=== PATIENT | female | born 1970 | race Caucasian/White ===

== ENCOUNTER 2016-05-24 17:57 | Emergency (ER) | payer OTHER ==
[~2016-05-24] VITALS: Ht 177.8 cm; Wt 99.0 kg
[~2016-05-24 17:57] MED LIST: ABILIFY2 MG PO; AMBIEN10 MG PO; AMLODIPINE BESYL5 MG PO; ASPIR 8181 M1 PO; ASPIR-LOW81 MG PO; BENTYL10 MG PO; BENZTROPINE MESY2 MG PO; CIPRO500 MG PO; CLONAZEPAM1 MG PO; CYMBALTA60 MG PO; DITROPAN5 MG PO; FLEXERIL10 MG PO; GEMFIBROZIL600 MG PO; HALDOL10 MG PO; LATUDA120 MG PO; LATUDA40 MG PO; LEVO-T88 MCG PO; LEVOTHYROXINE25 MCG PO; LEVOTHYROXINE50 MCG PO; LINZESS290 MCG PO; LOPID600 M1 PO; LORAZEPAM1 MG PO; LORTAB 5-325 M1 EACH PO; LYRICA100 MG PO; METOPROLOL SUCC25 MG PO; MIRTAZAPINE15 MG PO; MORPHINE SULFAT15 M1 PO; MORPHINE SULFAT30 M2 PO; MOTRIN600 MG PO; MOVE IT ALONG100 MG PO; MS CONTIN,ORAMO30 MG PO; PERCOCET 5/31 TABLET PO; PERCOCET 7.5-31 EACH PO; POLYETHYLENE GL17 GM PO; PRAVASTATIN SOD40 MG PO; PREVACID30 MG PO; PROTONIX40 MG PO; ROBAXIN750 MG PO; TEMAZEPAM15 MG PO; TIZANIDINE HCL4 MG PO; TRAZODONE HCL100 MG PO; TRAZODONE HCL150 MG PO; VALIUM5 MG PO; VICODIN,LORT1 TABLET PO; VITAMIN D5000 UNI1 PO; ZOFRAN ODT4 MG PO
[2016-05-24 20:20] LABS: HEMATOCRIT 39.8 % (36.0-46.0); MCH 30.5 PG (29.0-34.0); MCHC 34.2 G/DL (30.0-36.0); MCV 89.2 FL (83-99); MEAN PLAT.VOLUME 9.1 uM^3 (9.5-12.4); PLATELET COUNT 239 K/uL (156-360); RBC DIS.WIDTH-CV 13.1 % (11.8-14.6); RBC DIS.WIDTH-SD 41.8 % (39-53); RED BLOOD COUNT 4.46 M/uL (3.80-5.20); WHITE BLOOD COUNT 6.3 K/uL (4.1-10.2)
[2016-05-24 20:24] LABS: CHLORIDE 107 mEq/L (99-109); POTASSIUM 4.4 mEq/L (3.7-5.4); SODIUM 142 mEq/L (136-147)
[2016-05-24 20:26] LABS: GLUCOSE 76 mg/dL (70-99)
[2016-05-24 20:27] LABS: ANION GAP 10 MEQ/L (2-14)
[2016-05-24 20:28] LABS: TOTAL BILIRUBIN 0.3 mg/dL (0.0-1.0)
[2016-05-24 20:29] LABS: ALKALINE PHOSPHATASE 89 IU/L (3-129)
[2016-05-24 20:30] LABS: GFR ESTIMATE (CALCULATED) > 59 mL/min/
[2016-05-24 20:31] LABS: UREA NITROGEN (BUN) 12 mg/dL (9-23)
[2016-05-24 20:33] LABS: LIPASE 41 U/L (1.0-51.0)
[2016-05-24 20:38] LABS: QUANTITATIVE HCG < 4.0 MIU/ML
[2016-05-24] MEDS ORDERED: NAPROXEN500 MG PO (21:36)
[2016-05-24] MEDS ORDERED: PERCOCET 5/31 TABLET PO (21:36)
[2016-05-24 21:50] VITALS: BP 121/64
== END 2016-05-24 21:50 | disposition home or self-care (01) ==
LOC: EME 17:57
PROVIDERS: Physician Assistant
DX: S70.02XA Contusion of left hip, initial encounter (principal); S80.02XA Contusion of left knee, initial encounter; M54.5 Low back pain; R07.81 Pleurodynia; V09.20XA Pedestrian injured in traffic accident involving unspecified motor vehicles, initial encounter; Z86.718 Personal history of other venous thrombosis and embolism; F17.200 Nicotine dependence, unspecified, uncomplicated
CPT/HCPCS: 71100; 73502; 73564; 80053; 83690; 84702; 85027; 99281; 99284

== ENCOUNTER 2016-09-20 20:12 | Observation (INO) | payer OTHER ==
[~2016-09-20] VITALS: Ht 177.8 cm; Wt 96.8 kg
[~2016-09-20 20:12] MED LIST changes: +NAPROXEN500 MG PO
[2016-09-20 21:39] LABS: HEMATOCRIT 38.2 % (36.0-46.0); MCV 91.2 FL (83-99); MEAN PLAT.VOLUME 9.3 uM^3 (9.5-12.4); PLATELET COUNT 228 K/uL (156-360); RBC DIS.WIDTH-CV 12.4 % (11.8-14.6); RBC DIS.WIDTH-SD 41.4 % (39-53); RED BLOOD COUNT 4.19 M/uL (3.80-5.20); WHITE BLOOD COUNT 6.6 K/uL (4.1-10.2)
[2016-09-20 22:02] LABS: CHLORIDE 107 mEq/L (99-109); SODIUM 139 mEq/L (136-147)
[2016-09-20 22:04] LABS: GLUCOSE 85 mg/dL (70-99)
[2016-09-20 22:06] LABS: ANION GAP 7 MEQ/L (2-14)
[2016-09-20 22:08] LABS: GFR ESTIMATE (CALCULATED) > 59 mL/min/; TROP-I INTERPRETATION NEGATIVE; TROPONIN-I < 0.01 ng/mL (0.0-0.30)
[2016-09-20 22:09] LABS: UREA NITROGEN (BUN) 11 mg/dL (9-23)
[2016-09-20 23:44] LABS: ADD MIUA? YES; BILIRUBIN NEGATIVE; BLOOD NEGATIVE; COLOR YELLOW ((YELLOW)); GLUCOSE (STRIP) NEGATIVE; KETONES 5; LEUKOCYTES NEGATIVE; NITRITE NEGATIVE; PROTEIN (STRIP) NEGATIVE; SPECIFIC GRAVITY 1.021 (1.000-1.030); UROBILINOGEN 0.2 MG/DL (0.2-1.0)
[2016-09-20 23:56] LABS: AMPHETAMINE NEGATIVE (500 ng/mL); BACTERIA RARE /HPF; BARBITURATES NEGATIVE (200 ng/mL); BENZODIAZEPINES PRESUMPTIVE POSITIVE (150 ng/mL); CALCIUM OXALATE CRYSTALS 4+ /HPF; COCAINE NEGATIVE (150 ng/mL); EPITHELIAL CELLS RARE /HPF; HYALINE CASTS 0-5 /LPF; INTERNAL CONTROLS VALID? YES; METHADONE NEGATIVE (200 ng/mL); METHAMPHETAMINE NEGATIVE (500 ng/mL); MUCUS TRACE /LPF; OPIATES (MORPHINE) NEGATIVE (100 ng/mL); OXYCODONE NEGATIVE (100 ng/mL); PHENCYCLIDINE NEGATIVE (25 ng/mL); PROPOXYPHENE NEGATIVE (300 ng/mL); RED BLOOD CELLS 0-5 /HPF (0-5); THC CANNABINOIDS PRESUMPTIVE POSITIVE (50 ng/mL); TRICYCLIC ANTIDEPRESSANTS NEGATIVE (300 ng/mL); WHITE BLOOD CELLS 0-5 /HPF (0-5)
[2016-09-20 23:57] LABS: ADD MEDTOX COMMENT Y
[2016-09-21 00:28] LABS: BENZODIAZEPINES QUANT VALUE 0 NG/ML; BENZODIAZEPINES, URINE SCREEN Negative (200 ng/mL)
[2016-09-21] MEDS ORDERED: LO-DOSE ASPIRIN81 M2 PO (00:49)
[2016-09-21 02:30] LABS: D-DIMER ELISA 0.31 mg/L FEU (< 0.57); PROTHROMBIN TIME 10.5 (9.2-11.2); PTT 27.1 (25-32)
[2016-09-21 05:42] LABS: TROP-I INTERPRETATION NEGATIVE; TROPONIN-I < 0.01 ng/mL (0.0-0.30)
[2016-09-21 13:06] LABS: TROP-I INTERPRETATION NEGATIVE; TROPONIN-I < 0.01 ng/mL (0.0-0.30)
[2016-09-21 13:26] VITALS: BP 125/68
[2016-09-21] MEDS ORDERED: TRAMADOL HCL50 MG PO (15:57)
[2016-09-21 16:41] VITALS: BP 140/81
== END 2016-09-21 18:00 | disposition home or self-care (01) ==
LOC: EME 20:12 → EDOF 09-21 03:27 → 5WEST 09-21 13:29
PROVIDERS: Hospitalist; Physician Assistant
DX: R07.9 Chest pain, unspecified (principal); R55 Syncope and collapse; Z95.0 Presence of cardiac pacemaker; E03.9 Hypothyroidism, unspecified; E78.5 Hyperlipidemia, unspecified; Z87.891 Personal history of nicotine dependence; Z82.49 Family history of ischemic heart disease and other diseases of the circulatory system
CPT/HCPCS: 71010; 71275; 72050; 80048; 80306 90; 81003; 84484; 84999; 85027; 85379; 85610; 85730; 93005; 93880; 99281; 99285; G0378; J1650; J1885; J2270; J2405; J3010; J7030

== ENCOUNTER 2017-02-19 21:38 | Observation (INO) | payer OTHER ==
[~2017-02-19] VITALS: Ht 177.8 cm; Wt 98.5 kg
[~2017-02-19 21:38] MED LIST changes: +LO-DOSE ASPIRIN81 M2 PO; +TRAMADOL HCL50 MG PO
[2017-02-19 22:12] LABS: HEMATOCRIT 39.6 % (36.0-46.0); MCH 30.9 PG (29.0-34.0); MCHC 34.1 G/DL (30.0-36.0); MCV 90.6 FL (83-99); MEAN PLAT.VOLUME 9.1 uM^3 (9.5-12.4); PLATELET COUNT 259 K/uL (156-360); RBC DIS.WIDTH-CV 12.2 % (11.8-14.6); RBC DIS.WIDTH-SD 40.6 % (39-53); RED BLOOD COUNT 4.37 M/uL (3.80-5.20); WHITE BLOOD COUNT 6.1 K/uL (4.1-10.2)
[2017-02-19 22:20] LABS: D-DIMER ELISA < 150.00 ng/mLDDU (<230)
[2017-02-19 22:23] LABS: CHLORIDE 105 mEq/L (99-109); MAGNESIUM 2.2 mg/dL (1.3-2.7); POTASSIUM 3.7 mEq/L (3.7-5.4); SODIUM 142 mEq/L (136-147)
[2017-02-19 22:24] LABS: GLUCOSE 95 mg/dL (70-99)
[2017-02-19 22:26] LABS: ANION GAP 13 MEQ/L (2-14)
[2017-02-19 22:28] LABS: GFR ESTIMATE (CALCULATED) > 59 mL/min/
[2017-02-19 22:29] LABS: UREA NITROGEN (BUN) 11 mg/dL (9-23)
[2017-02-19 22:36] LABS: TROP-I INTERPRETATION NEGATIVE; TROPONIN-I < 0.01 ng/mL (0.0-0.30)
[2017-02-20] MEDS ORDERED: ATIVAN1 MG PO (08:53)
[2017-02-20] MEDS ORDERED: FLORINEF ACETA0.1 MG PO (08:56)
[2017-02-20] MEDS ORDERED: MIDODRINE HCL5 MG PO (08:56)
[2017-02-20] MEDS ORDERED: ALMOTRIPTAN M12.5 MG PO (08:57)
[2017-02-20 10:03] VITALS: BP 103/64
[2017-02-20 16:10] VITALS: BP 124/77
[2017-02-20 19:45] VITALS: BP 136/79
[2017-02-21] VITALS: BP 128/72
[2017-02-21 03:55] VITALS: BP 130/69
[2017-02-21 05:50] LABS: EOSINOPHIL (%) 4.1 % (0-5); EOSINOPHIL COUNT 0.2 K/uL (0-0.3); HEMATOCRIT 38.8 % (36.0-46.0); IMMATURE GRANULOCYTE (%) 0.3 % (0.0-0.7); INSTRUMENT ABS NEUTROPHIL CT 1.6 K/uL; LYMPHOCYTE COUNT 1.8 K/uL (1.0-2.8); MCH 31.5 PG (29.0-34.0); MCHC 34.3 G/DL (30.0-36.0); MCV 91.9 FL (83-99); MEAN PLAT.VOLUME 9.4 uM^3 (9.5-12.4); MONOCYTE (%) 9.9 % (3-12); MONOCYTE COUNT 0.4 K/uL (0-0.8); NEUTROPHIL (%) 40.3 % (45-76); NEUTROPHIL COUNT 1.6 K/uL (1.8-6.4); PLATELET COUNT 201 K/uL (156-360); RBC DIS.WIDTH-SD 40.9 % (39-53); RED BLOOD COUNT 4.22 M/uL (3.80-5.20); WHITE BLOOD COUNT 3.9 K/uL (4.1-10.2)
[2017-02-21 05:52] LABS: ALKALINE PHOSPHATASE 87 IU/L (3-129); ANION GAP 5 MEQ/L (2-14); CHLORIDE 108 MEQ/L (99-109); DIRECT BILIRUBIN 0.1 mg/dL (0.0-0.3); GFR ESTIMATE (CALCULATED) > 59 mL/min/; GLUCOSE 85 mg/dL (70-99); SAMPLE HEMOLYSIS CHECK 0; SAMPLE ICTERIC CHECK 0; SAMPLE LIPEMIA CHECK 0; SODIUM 142 MEQ/L (136-147); TOTAL BILIRUBIN 0.4 MG/DL (0.0-1.0); UREA NITROGEN (BUN) 17 mg/dL (9-23)
[2017-02-21 05:53] LABS: POTASSIUM 4.5 MEQ/L (3.7-5.4)
[2017-02-21 08:04] VITALS: BP 113/61
[2017-02-21 11:48] VITALS: BP 137/62
== END 2017-02-21 15:08 | disposition home or self-care (01) ==
LOC: EME 21:38 → 5WEST 02-20 02:03 → EDOF 02-20 02:03 → ENRESERV 02-20 02:08 → 5WEST 02-20 09:46 → ENPENDDIS 02-21 → 5WEST 02-21 15:08
PROVIDERS: Emergency Medicine; Hospitalist
DX: R55 Syncope and collapse (principal); R07.89 Other chest pain; I49.5 Sick sinus syndrome; Z95.0 Presence of cardiac pacemaker; E03.9 Hypothyroidism, unspecified; F17.200 Nicotine dependence, unspecified, uncomplicated; Z86.718 Personal history of other venous thrombosis and embolism; F32.9 Major depressive disorder, single episode, unspecified; F41.9 Anxiety disorder, unspecified; Z82.49 Family history of ischemic heart disease and other diseases of the circulatory system; Z86.73 Personal history of transient ischemic attack (TIA), and cerebral infarction without residual deficits; I10 Essential (primary) hypertension; G43.909 Migraine, unspecified, not intractable, without status migrainosus; K21.9 Gastro-esophageal reflux disease without esophagitis; R20.0 Anesthesia of skin; M54.9 Dorsalgia, unspecified; Z90.49 Acquired absence of other specified parts of digestive tract; Z90.710 Acquired absence of both cervix and uterus; Z88.2 Allergy status to sulfonamides; Z88.8 Allergy status to other drugs, medicaments and biological substances; Z91.09 Other allergy status, other than to drugs and biological substances
CPT/HCPCS: 70450; 71010; 72100; 72125; 80048; 80076; 83735; 84484; 85025; 85027; 85379; 93005; 99281; 99285; G0378; J1650; J1885; J2270; J2405; J2765; J7030